=== PATIENT | female | born 2000 | race Caucasian/White ===

== ENCOUNTER 2023-12-04 05:47 | Outpatient (CLI) | payer BC, MEDICAID, SELFPAY ==
[2023-12-04 06:01] VITALS: RESP 16; TEMP 36.5
[2023-12-04 06:02] VITALS: BP 121/76; PULSE 80
[2023-12-04 06:20] VITALS: BMI 30.9
--- NOTE | 2023-12-04 06:44 | OB.TRI.NOTE ---
HPI - General HPI Narrative SANA VANN, is a 23 F G1 who presents to triage for contractions and decreased movement. PFSH PFSH Medical History (Updated 12/17/23 @ 08:51 by Fani Atkinson CNM) macrosomia Home Medications ?Medication ?Instructions ?Recorded ?Last Taken ?Type vits,calcium no.78-iron 1 tab PO DAILY 12/04/23 12/03/23 History fumarate-folic acid 29 mg-1 mg tablet (Prenatabs FA) Allergy/AdvReac Type Severity Reaction Status Date / Time No Known Allergies Allergy Verified 12/11/23 11:05 Surgical History (Updated 12/11/23 @ 12:[address] Saira Shi MD) History of surgery Social History Smoking Status: Never smoker History Elective abortions Hx Para 0 Spontaneous abortions Hx # Term Pregnancies Ectopic pregnancies Hx # Pregnancies Multiple births # of living children ROS Eyes Eyes: Denies blurry vision Cardiovascular Cardiovascular: Reports none; Denies chest pain at rest, chest pain with activity or dizziness Respiratory/Chest Respiratory/Chest: Denies cough or dyspnea Gastrointestinal Gastrointestinal: Reports none and other; Denies diarrhea or vomiting Genitourinary Genitourinary: Denies dysuria Musculoskeletal Musculoskeletal: Reports none Integumentary Integumentary: Reports none; Denies rash Neurologic Neurologic: Denies dizziness, headache(s) or other visual disturbances Psychiatric Psychiatric: Reports none Physical Exam Const alert and no apparent distress General Appearance: cooperative Orientation / Consciousness: awake Exam Limitations: no limitations HEENT normocephalic Eyes General Eye: normal appearance of both eyes Neck full ROM Chest inspection of chest normal Resp normal respiratory effort and normal air movement Effort and Inspection: symmetric chest movement Auscultation: clear to auscultation bilaterally Cardio regular rate GI soft to palpation, non-tender and non-distended Inspection: and other Back/Spine normal ROM Extremity full ROM, normal capillary refill and no calf tenderness Skin no rashes or lesions noted Neuro oriented x3 and CN's II-XII intact bilaterally Psych mental status grossly normal NST FHR Rate Baby A Baseline: 140 Variability:: Moderate Accelerations:: 15 x 15 Decelerations:: None NST Reactive:: Yes FHR Category:: Category I Uterine Activity:: Irregular Assessment & Plan (1) 38 weeks gestation of : (2) Uterine contractions: (3) Decreased movement: PLAN: Plan CE 1.5 cm - Unchanged Irregular contractions D/C home with follow up in office
== END 2023-12-04 08:15 | disposition home or self-care (01) ==
LOC: WPOUT 05:56 → WP 05:57
PROVIDERS: Referring Provider Advanced Practice Midwife; Visit Provider Advanced Practice Midwife
DX: O36.8130 Decreased fetal movements, third trimester, not applicable or unspecified (principal); Z3A.38 38 weeks gestation of pregnancy
CPT/HCPCS: 59050; 99221; G0378

== ENCOUNTER 2023-12-11 09:43 | Inpatient (IN) | payer BC, MEDICAID, SELFPAY ==
[2023-12-11] VITALS (12 sets, daily range): BP systolic 99–124; BP diastolic 54–81; PULSE 81–99; RESP 13–19; TEMP 36.1–36.8; O2SAT 94–99; BMI 29.8
[2023-12-11] MEDS: Lactated Ringers 1,000 ML 999 ML IV (10:20)
[2023-12-11] MEDS: Acetaminophen 500 MG Tablet 1000 MG PO ×3 (10:53→23:12)
[2023-12-11 11:06] LABS: Absolute Lymphocyte Count 1.85 X10^3/uL (0.83-4.51); Absolute Neutrophil Count 8.5 X10^3/uL (2.0-7.7); Basophil# 0.09 X10^3/uL; Basophil% 0.8 % (0-1); Eosinophil# 0.12 X10^3/uL; Hematocrit 39.7 % (37-47); Hemoglobin 13.3 g/dL (12.0-15.0); Lymphocyte # 1.85 X10^3/ul (0.83-4.51); Lymphocyte % 15.5 % (19-41); Mean Corp Hgb Conc 33.5 g/dL (32-36); Mean Corpuscular Hgb 29.5 pg (27.0-32.0); Mean Platelet Vol. 10.9 fl (6.2-12.0); Monocyte% 7.5 % (0-10); NRBC Flagged by Analyzer 0 % (0-5); Neutrophil # 8.48 X10^3/uL (2.7-7.7); Neutrophil % 70.9 % (47-70); Platelet Count 175 K/mm3 (150-450); RBC Distribution Width CV 12.9 % (11.6-14.6); RBC Distribution Width SD 41.5 fl (35.1-43.9); Red Blood Count 4.51 M/mm3 (4.2-5.4)
[2023-12-11] MEDS: Sodium Citrate/Citric Acid 30 ML UDC PO (11:35)
[2023-12-11] MEDS: Lactated Ringers 1,000 ML 150 ML IV (11:37)
--- NOTE | 2023-12-11 11:51 | PCM.HP.BLA ---
History and Physical Date of Admission: 12/11/23 Pre-Op History and Physical HPI: The patient is a 23 year old female presenting for pre-operative visit. She is scheduled for , for LGA EFW >99% on 11/26. Procedure discussed along with risks, benefits and complications. Other alternatives discussed for management. Consent form signed? Yes. PAST MEDICAL HISTORY PAST MEDICAL HISTORY Diagnosis Date ? IBS (irritable bowel syndrome) 2019 PAST SURGICAL HISTORY PAST SURGICAL HISTORY Procedure Laterality Date ? EXTRACTION ERUPTED TOOTH/EXR CURRENT MEDICATIONS Current Outpatient Medications Medication Sig Dispense Refill ? Mnsdhcnh-Rs-Ikl-[id number]-FA tab Take 1 tablet by mouth once daily. 90 tablet 3 No current facility-administered medications for this visit. ALLERGIES: Patient has no known allergies. PERSONAL HISTORY: SOCIAL HISTORY Social History Tobacco Use ? Smoking status: Never Passive exposure: Never ? Smokeless tobacco: Never Vaping Use ? Vaping status: Never Used Substance Use Topics ? Alcohol use: Not Currently ? Drug use: Not Currently FAMILY HISTORY: FAMILY HISTORY FAMILY HISTORY Problem Relation Age of Onset ? Anxiety disorder Mother ? Hypertension Father ? ADD/ADHD Sister ? OCD Sister ? Colon Cancer Maternal Grandmother ? Diabetes Maternal Grandfather ? Anxiety disorder Paternal Grandmother ? Cancer Paternal Grandfather Rare cancer of the eyes and brain REVIEW OF SYMPTOMS: negative except as noted above PHYSICAL EXAMINATION: VITALS: Last menstrual period 03/12/2023. GENERAL: The patient is well nourished, well hydrated in no acute distress. , The patient is oriented to time, place, and person. NECK: Supple. No lynphadenopathy, normal thyroid, no thyromegaly. LUNGS: Clear to auscultation bilaterally. no wheezes, rhonchi or rales HEART: Regular rate and rhythm, Normal heart sounds, and No murmurs or gallops GENITALIA: Normal external genitalia, Urethral meatus normal, Bladder nontender, normal vagina and normal vaginal tone, normal cervix, normal uterus, size and consistency, normal adnexa without masses or tenderness, and perineum WNL WET PREP: Not indicated IMPRESSION: Primary c/s for LGA PLAN: section scheduled for 12/10 I have reviewed and updated past medical and surgical history, medications and allergies Saira Shi Assessment & Plan Assessment/Plan (1) 39 weeks gestation of : (2) Macrosomia affecting management of mother: QUALIFIERS: Fetus number: single or unspecified fetus Trimester: third trimester Qualified Code(s): O36.63X0 - Maternal care for excessive growth, third trimester, not applicable or unspecified PLAN: EFW >99% HC, BPD and AC >99% 9# 3 oz at 37 weeks projected to be 5892-2511 gms at 40 weeks PLAN: Plan Primary elective c/s for macrosomia
[2023-12-11] MEDS: Cefazolin 2 GM in Syringe IV (12:06)
[2023-12-11 12:07] LABS: Syphilis Antibodies Non-reactive
--- NOTE | 2023-12-11 12:56 | EX.PCM.OBRPT ---
Assessment & Plan (1) S/P : Maternal Data Information Final FANNY: 12/18/23 Gestational age: 39 Details Operative Information Date of Procedure: 12/11/23 Pre-Operative Diagnosis: primary for macrosomia Post-Operative Diagnosis: same Indications Narrative: EFW >99% at 37 weeks. Anticipate 4358-9747 grams Classification: Scheduled Procedure Type: low transverse precision machine operator #1: Corrie Moy Type of Anesthesia: Spinal Anesthesiologist: Deven Garcia Antibiotic Given: Ancef 2 grams IV x1 Drain: Castro to straight drain Estimated Blood Loss: 500 cc Procedure Start Time: 12:25 Procedure Stop Time: 13:00 Time of Delivery: 12:29 Findings Description of Procedure: Patient taken to the OR where Spinal was dosed for . She was placed in a dorsal supine position with leftward tilt. She was prepped and draped in the normal sterile fashion. A Pfannenstiel incision was made and carried down to the underlying fascia. The fascia was incised in the midline and extended laterally. The fascia was dissected from the muscle. The muscles divided in the midline. The peritoneum was entered bluntly and extended manually. A bladder blade was placed. A bladder flap was created. A low transverse incision was made and extended bluntly. The head was elevated to the incision. The shoulders delivered easily. The infant cried upon delivery. The cord was cut and clamped. The placenta was delivered with marvin traction. The uterus was exteriorized and cleared of all clot and debris. The incision was repaired with 1-0 Vicryl x 2. The uterus was returned the abdomen, The gutter cleared of all clots. The peritoneum was closed with 2-0 Monocryl. The fascia was closed with 1-0 Vicryl. The subcutaneous tissue was reapproximated with 2-0 Monocryl The skin was closed with 4-0 Monocryl. I performed the major parts of the procedure with the BUSINESS DEVELOPMENT REPRESENTATIVE assisting with retraction and closing the skin. The sponge lap and needle count was correct x 2 Presentation: Positive for Vertex and H[place] Amniotic Membrane Rupture Type: Artificial Time of Membrane Ruptured: 1228 Amniotic Fluid Description: Clear Placental Delivery Description: Expressed Placenta Disposition: [facility] Cord Vessel Description: 3 Vessels Cord Entanglement: None Infant A Gender: Male (1 minute): 9 (5 minute): 9 Delayed Cord Clamping: Yes
[2023-12-11] MEDS: Oxytocin 15 Units/NS 250ml 15 UNITS/250 ML IV.SOLN 83 UNITS IV (13:15)
[2023-12-11] MEDS: Ketorolac 30 MG/ML Syringe IV ×2 (13:52→20:43)
[2023-12-11] MEDS: 0.9% Saline Lock 10 ML Syringe IV ×2 (17:46→20:43)
[2023-12-12 00:19] VITALS: BP 103/62; PULSE 88; RESP 16; TEMP 36.8; O2SAT 97
[2023-12-12] MEDS: 0.9% Saline Lock 10 ML Syringe IV ×2 (01:52→07:59)
[2023-12-12] MEDS: Ketorolac 30 MG/ML Syringe IV ×2 (01:52→08:41)
[2023-12-12 03:45] VITALS: BP 98/61; PULSE 75; RESP 14; TEMP 36.2; O2SAT 98
[2023-12-12] MEDS: Acetaminophen 500 MG Tablet 1000 MG PO ×4 (05:22→23:26)
[2023-12-12 05:36] LABS: Hematocrit 35.3 % (37-47); Hemoglobin 12.3 g/dL (12.0-15.0); Mean Corp Hgb Conc 34.8 g/dL (32-36); Mean Corpuscular Hgb 30.5 pg (27.0-32.0); Mean Corpuscular Volume 87.6 fL (81-99); Mean Platelet Vol. 10.6 fl (6.2-12.0); Platelet Count 147 K/mm3 (150-450); RBC Distribution Width SD 41.8 fl (35.1-43.9); Red Blood Count 4.03 M/mm3 (4.2-5.4); White Blood Count 13.7 K/mm3 (4.4-11.0)
[2023-12-12 08:11] VITALS: BP 113/69; PULSE 91; RESP 16; TEMP 36.1; O2SAT 98
--- NOTE | 2023-12-12 09:14 | PCM.PN.OB ---
Subjective Subjective Doing well. Ambulating and voiding without difficulty. Mild lochia. Breast feeding. Objective Data Objective Data Vital Signs: Vital Signs Temp Pulse Resp BP Pulse Ox O2 Del Method 97.0 F L 91 16 113/69 98 Room Air 12/12/23 08:11 12/12/23 08:11 12/12/23 08:11 12/12/23 08:11 12/12/23 08:11 12/12/23 08:11 Oxygen Delivery Method Room Air Weight: 83.915 kg Body Mass Index (BMI) 29.8 Intake & Output: Intake and Output for Last 24 Hours 12/10/23 12/11/23 12/12/23 23:59 23:59 23:59 Intake Total 2092.5 / 2092.5 Output Total 1150 / 1150 500 / 500 Balance 942.5 / 942.5 -500 / -500 Lab / Micro Data 12/12/23 05:30 Labs: Laboratory Results - last 24 hr 12/11/23 10:20: WBC 12.0 H, RBC 4.51, Hgb 13.3, Hct 39.7, MCV 88.0, MCH 29.5, MCHC 33.5, RDW Std Deviation 41.5, RDW Coeff of Tressa 12.9, Plt Count 175, MPV 10.9, Immature Gran % (Auto) 4.300 H, Neut % (Auto) 70.9 H, Lymph % (Auto) 15.5 L, [place] % (Auto) 7.5, Eos % (Auto) 1.0, Baso % (Auto) 0.8, Absolute Neuts (auto) 8.5 H, Absolute Lymphs (auto) 1.85, Nucleated RBC % 0, Syphilis Total Ab Non-reactive, Blood Type A POSITIVE, Antibody Screen NEGATIVE 12/12/23 05:30: WBC 13.7 H, RBC 4.03 L, Hgb 12.3, Hct 35.3 L, MCV 87.6, MCH 30.5, MCHC 34.8, RDW Std Deviation 41.8, RDW Coeff of Tressa 13.0, Plt Count 147 L, MPV 10.6 ROS Constitutional Constitutional: Denies fatigue, fever(s) or malaise Eyes Eyes: Denies change in vision ENT HEENT: Denies dizziness or headache(s) Cardiovascular Cardiovascular: Denies chest pain, dyspnea or lightheadedness Respiratory/Chest Respiratory/Chest: Denies cough or dyspnea Gastrointestinal Gastrointestinal: Denies change in bowel habits Genitourinary Genitourinary: Denies burning urination or genital lesions Integumentary Integumentary: Denies rash Neurologic Neurologic: Denies confusion, dizziness, headache(s), numbness or weakness Physical Exam Const alert General Appearance: cooperative GI GI Narrative: soft, moderate distention, fundus firm, appropriately tender. Abdominal bandage clean dry and intact Assessment & Plan (1) S/P : (2) Macrosomia affecting management of mother: QUALIFIERS: Fetus number: single or unspecified fetus Trimester: third trimester Qualified Code(s): O36.63X0 - Maternal care for excessive growth, third trimester, not applicable or unspecified
[2023-12-12 12:30] VITALS: BP 121/70; PULSE 92; RESP 16; TEMP 36.5; O2SAT 99
[2023-12-12] MEDS: Prenatal Vits Tablet 1 TABLET PO (12:31)
[2023-12-12] MEDS: Senna/Docusate Sodium 1 Tablet PO (12:31)
[2023-12-12] MEDS: Ibuprofen 600 MG Tablet PO ×2 (13:22→19:51)
[2023-12-12 19:50] VITALS: BP 108/83; PULSE 74; RESP 18; TEMP 36.2; O2SAT 98
[2023-12-13 01:20] VITALS: BP 115/77; PULSE 64; RESP 18; TEMP 36.6; O2SAT 100
[2023-12-13] MEDS: Ibuprofen 600 MG Tablet PO ×4 (01:38→19:05)
[2023-12-13] MEDS: Acetaminophen 500 MG Tablet 1000 MG PO ×4 (05:46→23:33)
--- NOTE | 2023-12-13 05:50 | NURSING ---
Reviewed and agreed with Chana FRINGING MACHINE OPERATOR charting.
[2023-12-13 08:00] VITALS: BP 112/76; PULSE 78; RESP 18; TEMP 36.3; O2SAT 98
--- NOTE | 2023-12-13 08:01 | PCM.PN.OB ---
Subjective Subjective Doing well. Ambulating and voiding without difficulty. Mild lochia. Struggling with Breast feeding. Objective Data Objective Data Vital Signs: Vital Signs Temp Pulse Resp BP Pulse Ox O2 Del Method 97.8 F 64 18 115/77 100 Room Air 12/13/23 01:20 12/13/23 01:20 12/13/23 01:20 12/13/23 01:20 12/13/23 01:20 12/13/23 01:20 Oxygen Delivery Method Room Air Weight: 83.915 kg Body Mass Index (BMI) 29.8 Intake & Output: Intake and Output for Last 24 Hours 12/11/23 12/12/23 12/13/23 23:59 23:59 23:59 Intake Total 2092.5 / 2092.5 Output Total 1150 / 1150 500 / 500 Balance 942.5 / 942.5 -500 / -500 Lab / Micro Data 12/12/23 05:30 ROS Constitutional Constitutional: Denies fatigue, fever(s) or malaise Eyes Eyes: Denies change in vision ENT HEENT: Denies dizziness or headache(s) Cardiovascular Cardiovascular: Denies chest pain, dyspnea or lightheadedness Respiratory/Chest Respiratory/Chest: Denies cough or dyspnea Gastrointestinal Gastrointestinal: Denies change in bowel habits Genitourinary Genitourinary: Denies burning urination or genital lesions Integumentary Integumentary: Denies rash Neurologic Neurologic: Denies confusion, dizziness, headache(s), numbness or weakness Physical Exam Const alert General Appearance: cooperative GI GI Narrative: soft, moderate distention, fundus firm, appropriately tender. Abdominal bandage clean dry and intact Assessment & Plan (1) S/P : (2) Macrosomia affecting management of mother: QUALIFIERS: Fetus number: single or unspecified fetus Trimester: third trimester Qualified Code(s): O36.63X0 - Maternal care for excessive growth, third trimester, not applicable or unspecified PLAN: Plan Expect discharge tomorrow
[2023-12-13] MEDS: Senna/Docusate Sodium 1 Tablet PO (11:49)
[2023-12-13] MEDS: Prenatal Vits Tablet 1 TABLET PO (11:49)
[2023-12-13 14:15] VITALS: BP 118/71; PULSE 82; RESP 16; TEMP 36.7; O2SAT 99
[2023-12-13 19:49] VITALS: BP 117/70; PULSE 73; RESP 18; TEMP 36.5; O2SAT 99
[2023-12-14] MEDS: Ibuprofen 600 MG Tablet PO ×2 (01:20→07:15)
[2023-12-14 02:00] VITALS: BP 120/85; PULSE 75; RESP 18; TEMP 36.6; O2SAT 99
--- NOTE | 2023-12-14 04:44 | NURSING ---
Reviewed and agreed with Chana SOCIAL INSURANCE ADVISER charting.
[2023-12-14] MEDS: Acetaminophen 500 MG Tablet 1000 MG PO ×2 (05:36→11:36)
--- NOTE | 2023-12-14 06:51 | PCM.PN.OB ---
Subjective Subjective Doing well. Ambulating and voiding without difficulty. Mild lochia. Struggling with Breast feeding. Objective Data Objective Data Vital Signs: Vital Signs Temp Pulse Resp BP Pulse Ox O2 Del Method 97.8 F 75 18 120/85 H 99 Room Air 12/14/23 02:00 12/14/23 02:00 12/14/23 02:00 12/14/23 02:00 12/14/23 02:00 12/14/23 02:00 Oxygen Delivery Method Room Air Weight: 83.915 kg Body Mass Index (BMI) 29.8 Intake & Output: Intake and Output for Last 24 Hours 12/12/23 12/13/23 12/14/23 23:59 23:59 23:59 Output Total 500 / 500 Balance -500 / -500 Lab / Micro Data 12/12/23 05:30 ROS Constitutional Constitutional: Denies fatigue, fever(s) or malaise Eyes Eyes: Denies change in vision ENT HEENT: Denies dizziness or headache(s) Cardiovascular Cardiovascular: Denies chest pain, dyspnea or lightheadedness Respiratory/Chest Respiratory/Chest: Denies cough or dyspnea Gastrointestinal Gastrointestinal: Denies change in bowel habits Genitourinary Genitourinary: Denies burning urination or genital lesions Integumentary Integumentary: Denies rash Neurologic Neurologic: Denies confusion, dizziness, headache(s), numbness or weakness Physical Exam Const alert General Appearance: cooperative GI GI Narrative: soft, moderate distention, fundus firm, appropriately tender. Abdominal bandage clean dry and intact Assessment & Plan (1) S/P : PLAN: Plan Discharge home. No rxs desired
--- NOTE | 2023-12-14 06:53 | PCM.DC.SUM ---
Providers Date of Admission: 12/11/23 Date of Discharge: 12/14/23 Primary Care Physician: No Primary Care Phys Reason For Visit: PRIMARY C SECTION Diagnosis Discharge Diagnosis (1) S/P : Status: Acute Code(s): Z98.891 - History of uterine scar from previous surgery Plan Discharge home. No rxs desired Medications at Discharge Home Medications vits,calcium no.78-iron fumarate-folic acid 29 mg-1 mg tablet (Prenatabs FA) 1 tab PO DAILY 12/04/23 Hospital Course Operations section Procedures None Summary of Care Provided Minutes Spent on Discharge: 20 Hospital Course: Primary for LGA. No complications. Breast feeding at discharge Physical Exam Const alert General Appearance: cooperative GI GI Narrative: soft, moderate distention, fundus firm, appropriately tender. Abdominal bandage clean dry and intact Weight / BMI Weight Weight: 83.915 kg Body Mass Index (BMI) 29.8 ABG / Lab / Microbiology Data 12/12/23 05:30 D/C Instructions Discharge Diet: No restrictions May resume sexual activity in: 4-6 weeks Lifting Restrictions: 20 pounds Additional Activity Instructions: Nothing in the vagina for 4-6 weeks. You may return to work/school in 6 weeks. Call your doctor if your incision/area has: Continuous Slow Oozing, Sudden Increased Bleeding, Increased Pain/ Swelling, Increased Redness and Foul Smelling Discharge Call your doctor if you observe: Fever of 101 or Higher and Using more than 1 pad per hour (for 2 hours) Suture Line Care: Avoid Pulling/Pushing and Avoid Pinching/Bending Cleanse incision/area with: Keep Dressing Clean & Dry Please Follow Up With: Gloria Alvarenga MD When: Call to make an appointment for an incision check in 1-2 [phone]. You will need a post check in 6 weeks. Meaningful Use Info Meaningful Use Meaningful Use Diagnoses (Choose all that apply): None applicable Ischemic Stroke Statin Dosing Therapy Reference: STATIN DOSE THERAPY REFERENCE: * Patients > 75 years receive moderate or high dose statin therapy. * Patients 75 years or YOUNGER should receive HIGH intensity statin dose unless contraindicated. You will be required to document reason for non-treatment if statin daily dose does not meet guidelines. HIGH DOSE STATIN THERAPY DAILY Atorvastatin > than or = to 40 mg Rosuvastatin > than or = to 20 mg Amlodipine + Atorvastatin > than or = to 2.5/40 mg Ezetimibe + Simvastatin 10/80 mg Simvastatin 80mg Discharge Plan Admission Admit Date/Time: 12/11/23 09:43 Primary Reason for Your Visit: labor and delivery Attending Provider: Saira Shi Primary Care Provider: Care Physician,Abby Primary Discharge Orders/Prescriptions Prescriptions: Continued Prenatabs FA 29-1 mg tablet 1 tab PO DAILY Referrals / Follow Up: Care Physician,No Primary [Primary Care Provider] - Disposition Disposition (needs filled in before D/C Order can be placed): Home, Self Care
[2023-12-14 08:10] VITALS: BP 116/68; PULSE 73; RESP 16; TEMP 36.4; O2SAT 97
--- NOTE | 2023-12-14 11:00 | CASEMGMT ---
Social Work Assessment Labor and Delivery Unit Patient Address: [address] [place] [address] [place], [place] [address] Phone number: [phone] Date of Referral: 12/14/23 Time of Referral:? 454 Referred By: Dr. Shi Date of Intervention: ?? 12/14/23 Time of Intervention:? 1000 Reason for Referral:? resources Sw completed chart review and acknowledges social work consult due to maternal/ family need of resources. Sw presented to bedside, introduced self to mother of baby (LOPEZ- Radha) and paternal grandma. LOPEZ stated that it was okay to complete assessment with paternal grandma present. Father of baby (FOQueenie- Avelino) was present, but asleep on couch throughout most of assessment. History obtained from: medical records, MOB and paternal grandma??? Household composition: Currently residing in the family home is NICK MARROQUIN and now baby will be added to residence. LOPEZ denies any issues or concerns with housing, reporting that it is safe and secure. Patient's parent/guardian status:? ?LOPEZ states that she and NICK have been together for almost 5 years after meeting at [facility] where they were both in cross country together. LOPEZ denies any domestic violence or intimate partner violence. This is first baby for both parents. Medical History: ?LOPEZ is 23 year old female who is 1, para 0- now 1 following labor and delivery of . LOPEZ received routine care during with [facility]. LOPEZ presented to hospital for scheduled on 12/11/23 at 39 week gestation. Scheduled was due to size of baby. Baby boy, named Xavier Torres, wasd born weighing 9lb 6 oz with apgars of 9 and 9 at one and five minutes of life, respectfully. LOPEZ is breast feeding- there were initial concerns that MOB was going long stretches of time in between feeds (the longest being 6 hours), however baby started to cluster feed and LOPEZ has been feeding at much closer intervals over the past 24 hours. LOPEZ states that baby will be followed by Dr. Yeager for pediatrics. Educational Status:?Both parents graduated high school and attended some college, but did not get a degree. Parents deny requiring assistance in school, stating no problems with reading, learning or comprehension. Financial Status: NICK is employed at [employer]. He is able to get two weeks of paid paternity leave. LOPEZ is unemployed and will be home as the primary caregiver to baby. Infant Supplies: LOPEZ states that she has obtained all necessary baby supplies, including: car seat, safe sleep space, clothes, diapers and wipes. Childcare/Caregiver(s):?LOPEZ will be the primary caregiver to baby along with FOB when he is not at work. MOB also has support from both grandparents. Transportation:??Both parents drive and have reliable means of transportation. No barriers. Programs/Agencies Involved: ???LOPEZ is connected to [facility] and is aware that she needs to make an appointment with them now that baby has been born. Children Services/Legal Issues:??? No history of children services involvement, no issues or concerns warranting referral to be made at this time. Behavioral Health Issues: ??Mental Health History:??MOB states that neither she or FOQueenie have any mental health diagnoses. ? Substance Use History: MOB denies substance use prior to and during . ?? Family History: MOB denies family history of substance use or significant mental health diagnoses. ? Drug Screens: No drug screens observed in chart review. Family/Social Stressors:? MOB denies any issues, concerns or stressors. Nursing staff reported that MOB was not observed to provide a lot of hands on care to baby and going longer stretches in between feeds. Today however MOB has been feeding more frequently and was observed to hold baby and care for him. MOB states that she feels a connection with baby. MOB admits that at first when baby was born she was fearful of hurting him because he is tiny and fragile. MOB hands on care was observed to be appropriate and careful. Support Systems: MOB states that FOQueenie and both grandmas are her biggest supports at this time. Depression/Shaken Baby/Safe Sleeping: Sw educated parents on signs and symptoms of baby blues and mood and anxiety disorders to be mindful of. MOB states that if she is struggling with her mental health at all during this time she feels comfortable talking to her supports about what is going on. MOB states that if she were to struggle FOB would recognize that and would know how to help and support her. Sw educated MOB on shaken baby prevention and ABCs of safe sleep. MOB expressed understanding. ASSESSMENT:? MOB and baby admitted following labor and delivery. MOB is connected to [facility] and was informed of [facility] and their benefits during this time. MOB declined linkage for the time being. MOB reports to having all necessary baby supplies and natural supports in place. MOB presents as lacking confidence to care for baby, and initially was worried that by moving him and caring for him it would cause harm due to him being fragile. MOB has grown in her confidence over the past couple of days, and reports that she is starting to feel more and more comfortable caring for baby. MOB and FOB both observed during assessment to hold and care for baby lovingly and appropriately. PLAN:?? No other services requested or indicated. MOB and baby to be discharged when medically ready. Parents were provided literature regarding: signs and symptoms of baby blues and mood and anxiety disorders, [facility], shaken baby prevention, ABCs of safe sleep and a list of county resources that are available for them should any needs present themselves. Endy Pinedo, HUMAN RESOURCE ADVISOR, ACCOUNTS EXECUTIVE
[2023-12-14] MEDS: Prenatal Vits Tablet 1 TABLET PO (11:36)
[2023-12-14] MEDS: Senna/Docusate Sodium 1 Tablet PO (11:36)
== END 2023-12-14 12:10 | disposition home or self-care (01) | DRG 788 ==
PROVIDERS: Admitting Provider Obstetrics & Gynecology; Referring Provider Obstetrics & Gynecology; Visit Provider Obstetrics & Gynecology
PROC: 10D00Z1 Extraction of Products of Conception, Low, Open Approach (ICD-10-PCS; CPT 59514; principal; 2023-12-11 11:45)
DX: O36.63X0 Maternal care for excessive fetal growth, third trimester, not applicable or unspecified (principal); Z37.0 Single live birth; Z3A.39 39 weeks gestation of pregnancy
CPT/HCPCS: 59050; 85025; 85027; 86780; 86850; 86900; 86901; 99221; J7120; A4216; G0378; J2405